=== PATIENT | male | born 1945 | race Caucasian/White ===

== ENCOUNTER 2017-12-03 13:44 | Emergency (ER) | payer MEDICARE, OTHER ==
[2017-12-03] MEDS: NS 1,000 ML IV (15:42)
[2017-12-03 15:48] LABS: BASO # 0.1 10^3/uL (0.0-0.2); BASO % 1.4 % (0.0-1.0); EOS # 0.5 10^3/uL (0.0-0.50); EOS % 8.3 % (0.0-3.0); HEMATOCRIT 43.2 % (42.0-52.0); HEMOGLOBIN 14.7 g/dl (13.5-17.5); IMMATURE GRANULOCYTE % 0.2 % (0-3.0); LYMPH # 1.2 10^3/uL (1.5-4.5); LYMPH % 21.1 % (24.0-44.0); MEAN CORPUSCULAR HEMOGLOBIN 33.6 pg (27.0-33.0); MEAN CORPUSCULAR VOLUME 98.6 fl (80.0-96.0); MONO # 0.7 10^3/uL (0.0-0.8); MONO % 11.9 % (0.0-5.0); NEUTROPHILS # 3.4 10^3/uL (1.8-7.7); NEUTROPHILS % 57.1 % (36.0-66.0); PLATELET COUNT, AUTOMATED 173 10^3/uL (150-450); RED BLOOD COUNT 4.38 10^6/uL (4.30-6.10); RED CELL DISTRIBUTION WIDTH 13.2 % (11.5-14.5); WHITE BLOOD COUNT 5.9 10^3/uL (4.0-10.0)
[2017-12-03 16:02] LABS: LACTIC ACID SEPSIS PROTOCOL 0.9 MMOL/L (0.4-2.0)
[2017-12-03 16:09] LABS: KETONE, URINE AUTO RFX NEGATIVE (NEGATIVE); LEUKOCYTE ESTERASE UR AUTO RFX NEGATIVE (NEGATIVE); MUCUS, URINE RFX SMALL (NEGATIVE); NITRITE, URINE AUTO RFX NEGATIVE (NEGATIVE); RBC, URINE AUTO RFX 3 /HPF (0-3); SPECIFIC GRAVITY UR AUTO RFX 1.026 (1.002-1.035); SQUAM EPITHELIAL CELL UR AURFX 0 /HPF (0-6); WBC, URINE AUTO RFX 1 /HPF (0-3)
[2017-12-03 16:13] LABS: INR 0.93; PROTHROMBIN TIME 12.5 SECONDS (12.4-14.5)
[2017-12-03 16:35] LABS: ALBUMIN 3.6 GM/DL (3.2-5.2); ALBUMIN/GLOBULIN RATIO 0.92 (1.00-1.93); ALKALINE PHOSPHATASE 175 U/L (45-117); ALT/SGPT 108 U/L (12-78); AMYLASE 58 U/L (25-115); ANION GAP 3 MEQ/L (8-16); AST/SGOT 76 U/L (7-37); BILIRUBIN,DIRECT 0.2 MG/DL (0.0-0.2); BILIRUBIN,TOTAL 0.6 MG/DL (0.2-1.0); BLOOD UREA NITROGEN 20 MG/DL (7-18); CALCIUM LEVEL 8.6 MG/DL (8.8-10.2); CARBON DIOXIDE LEVEL 26 MEQ/L (21-32); CHLORIDE LEVEL 113 MEQ/L (98-107); CREATININE FOR GFR 1.03 MG/DL (0.70-1.30); GLOMERULAR FILTRATION RATE > 60.0 (>42); GLUCOSE, FASTING 76 MG/DL (70-100); LIPASE 269 U/L (73-393); POTASSIUM SERUM 4.2 MEQ/L (3.5-5.1); SODIUM LEVEL 142 MEQ/L (136-145); TOTAL PROTEIN 7.5 GM/DL (6.4-8.2)
[2017-12-03] MEDS ORDERED: ISOVUE-370 76% 100ML VIAL (Q9967) As Ordered (16:59)
== END 2017-12-03 20:11 | disposition home or self-care (01) ==
LOC: M ED 13:44
DX: S22.31XA Fracture of one rib, right side, initial encounter for closed fracture (principal); W11.XXXA Fall on and from ladder, initial encounter; Y92.098 Other place in other non-institutional residence as the place of occurrence of the external cause; I95.9 Hypotension, unspecified; F43.10 Post-traumatic stress disorder, unspecified; Z79.899 Other long term (current) drug therapy
CPT/HCPCS: Q9967

== ENCOUNTER 2018-07-12 18:01 | Inpatient (IN) | payer MEDICARE, OTHER ==
[2018-07-12 20:56] LABS: HEMATOCRIT 40.3 % (42.0-52.0); HEMOGLOBIN 13.1 g/dl (13.5-17.5); MEAN CORPUSCULAR HEMOGLOBIN 32.3 pg (27.0-33.0); MEAN CORPUSCULAR HGB CONC 32.5 g/dl (32.0-36.5); MEAN CORPUSCULAR VOLUME 99.3 fl (80.0-96.0); PLATELET COUNT, AUTOMATED 269 10^3/uL (150-450); RED BLOOD COUNT 4.06 10^6/uL (4.30-6.10); RED CELL DISTRIBUTION WIDTH 12.6 % (11.5-14.5)
[2018-07-12 21:16] LABS: AMPHETAMINES LEVEL URINE NEGATIVE (NEGATIVE); BARBITURATES URINE NEGATIVE (NEGATIVE); BENZODIAZEPINES URINE POSITIVE (NEGATIVE); CANNABINOIDS URINE NEGATIVE (NEGATIVE); COCAINE METABOLITE URINE NEGATIVE (NEGATIVE); METHADONE URINE NEGATIVE (NEGATIVE); OPIATES URINE NEGATIVE (NEGATIVE); PHENCYCLIDINE URINE NEGATIVE (NEGATIVE)
[2018-07-12 21:45] LABS: ACETAMINOPHEN LEVEL < 2.0 UG/ML (10.0-30.0); ALBUMIN/GLOBULIN RATIO 0.63 (1.00-1.93); ALKALINE PHOSPHATASE 262 U/L (45-117); ALT/SGPT 78 U/L (12-78); ANION GAP 8 MEQ/L (8-16); AST/SGOT 67 U/L (7-37); BILIRUBIN,DIRECT < 0.1 MG/DL (0.0-0.2); BILIRUBIN,TOTAL 0.2 MG/DL (0.2-1.0); BLOOD UREA NITROGEN 9 MG/DL (7-18); CALCIUM LEVEL 8.4 MG/DL (8.8-10.2); CARBON DIOXIDE LEVEL 28 MEQ/L (21-32); CHLORIDE LEVEL 101 MEQ/L (98-107); CREATININE FOR GFR 1.16 MG/DL (0.70-1.30); ETHYL ALCOHOL (ETHANOL) < 0.003 % (0.000-0.010); GLOMERULAR FILTRATION RATE > 60.0 (>42); GLUCOSE, FASTING 269 MG/DL (70-100); POTASSIUM SERUM 4.5 MEQ/L (3.5-5.1); SALICYLATE LEVEL < 1.7 MG/DL (5.0-30.0); SODIUM LEVEL 137 MEQ/L (136-145); TOTAL PROTEIN 7.8 GM/DL (6.4-8.2)
[2018-07-12] MEDS ORDERED: MOM 30ML SUSPENSION UDC PO (23:15)
[2018-07-12] MEDS ORDERED: ACETAMINOPHEN TAB 650MG DOSE (2X325MG) PO (23:15)
[2018-07-13] MEDS: MAALOX 30 ML SUSP *UDC PO ×2 (00:16→18:52)
[2018-07-13] MEDS: TAMSULOSIN 0.4 MG CAP PO ×2 (00:23→20:11)
[2018-07-13] MEDS: PRAVASTATIN 20 MG TAB PO ×2 (00:51→20:11)
[2018-07-13] MEDS: MULTIVITAMINS/MINERALS THERAP 1 TAB PO (09:22)
[2018-07-13] MEDS: LISINOPRIL 5 MG TAB PO (09:22)
[2018-07-13] MEDS: ESCITALOPRAM OXALATE 10 MG TAB (LEXAPRO) PO (09:22)
[2018-07-13] MEDS: traZODone 50 MG TAB PO (21:52)
[2018-07-14] MEDS: SERTRALINE HCL 50 MG TAB PO (09:45)
[2018-07-14] MEDS: MULTIVITAMINS/MINERALS THERAP 1 TAB PO (09:45)
[2018-07-14] MEDS: LISINOPRIL 5 MG TAB PO (09:45)
== END 2018-07-14 13:30 | disposition home or self-care (01) | DRG 882 ==
LOC: M ED 18:01 → M ED INP 23:01 → M PSY 23:35
DX: F43.10 Post-traumatic stress disorder, unspecified (principal); F41.9 Anxiety disorder, unspecified; N40.0 Benign prostatic hyperplasia without lower urinary tract symptoms; I10 Essential (primary) hypertension; E78.5 Hyperlipidemia, unspecified; Z96.651 Presence of right artificial knee joint; Z96.652 Presence of left artificial knee joint

== ENCOUNTER 2023-01-16 19:39 | Observation (INO) | payer MEDICARE, OTHER ==
[~2023-01-16] VITALS: Ht 172.7 cm; Wt 99.8 kg
[~2023-01-16 19:39] MED LIST: FLOM0.4C39 PO; LEXA1TAB2 PO; LISI20TA33 PO; LISI5TAB11 PO; PRAV10TA4 PO; PRAV20TA2 PO; VITMTA PO
[2023-01-16] MEDS ORDERED: LIDOCAINE 1% MDV 20ML VIAL IM ONE (22:50)
[2023-01-16] MEDS ORDERED: ceFAZolin SOD 2 GM in IV 1 EA IV ONE (23:05)
[2023-01-17] VITALS (9 sets, daily range): BP systolic 116–172; BP diastolic 59–80; TEMP 97.9–98.8; O2SAT 93–99
[2023-01-17 00:18] LABS: RSV AMPLIFICATION NEGATIVE (NEGATIVE)
[2023-01-17 00:43] LABS: ALBUMIN 3.8 G/DL (3.2-5.2); ALKALINE PHOSPHATASE 117 U/L (46-116); ALT/SGPT 44 U/L (7.0-40); AST/SGOT 46 U/L (<34); BASO # 0.1 10^3/uL (0.0-0.2); BASO % 0.7 % (0.0-1.0); BILIRUBIN,TOTAL 1.2 MG/DL (0.3-1.2); BLOOD UREA NITROGEN 22 MG/DL (9-23); CALCIUM LEVEL 8.2 MG/DL (8.3-10.6); CARBON DIOXIDE LEVEL 27 MMOL/L (20-31); CHLORIDE LEVEL 109 MMOL/L (98-107); CREATININE FOR GFR 1.07 MG/DL (0.70-1.30); EOS # 0.3 10^3/uL (0.0-0.5); EOS % 3.4 % (0.0-3.0); GLOMERULAR FILTRATION RATE > 60.0 (>42); GLUCOSE, FASTING 101 MG/DL (74-106); HEMATOCRIT 42.9 % (42.0-52.0); HEMOGLOBIN 14.4 g/dl (13.5-17.5); LYMPH # 1.4 10^3/uL (1.5-5.0); LYMPH % 19.3 % (24.0-44.0); MEAN CORPUSCULAR HGB CONC 33.6 g/dl (32.0-36.5); MEAN CORPUSCULAR VOLUME 98.4 fl (80.0-96.0); MONO # 0.9 10^3/uL (0.0-0.8); MONO % 11.7 % (2.0-8.0); NEUTROPHILS # 4.8 10^3/uL (1.5-8.5); NEUTROPHILS % 64.8 % (36.0-66.0); PLATELET COUNT, AUTOMATED 138 10^3/uL (150-450); POTASSIUM SERUM 4.2 MMOL/L (3.5-5.1); RED BLOOD COUNT 4.36 10^6/uL (4.30-6.10); SODIUM LEVEL 142 MMOL/L (136-145); TOTAL PROTEIN 6.5 G/DL (5.7-8.2); WHITE BLOOD COUNT 7.5 10^3/uL (4.0-10.0)
[2023-01-17] MEDS ORDERED: HYDROMORPHONE HCL 0.5 MG/ 0.5 ML SYRINGE IV PRN (01:35)
[2023-01-17] MEDS ORDERED: ACETAMINOPHEN TAB 650MG DOSE (2X325MG) PO PRN (01:35)
[2023-01-17] MEDS ORDERED: EFFE75CA2 PO (02:14)
[2023-01-17] MEDS ORDERED: ZOLO100T PO (02:14)
[2023-01-17] MEDS ORDERED: GABA600T4 PO (02:14)
[2023-01-17] MEDS ORDERED: LISI5TAB11 PO (02:14)
[2023-01-17] MEDS ORDERED: HOME MED LIST COMPLETE! XX SCH (02:15)
[2023-01-17] MEDS: NS 1,000 ML IV SCH (02:41)
[2023-01-17] MEDS: ceFAZolin SOD 2 GM in IV 1 EA IV SCH ×2 (09:37→16:57)
[2023-01-17] MEDS: GABAPENTIN 300 MG CAP PO SCH ×2 (09:37→20:46)
[2023-01-17] MEDS: lisinopriL 5 MG TAB PO SCH (09:40)
[2023-01-17] MEDS: SERTRALINE 100 MG TAB PO SCH (09:40)
[2023-01-17] MEDS ORDERED: LIDOCAINE 2% 100MG/5ML SDV (FOR ANES.) As Ordered ONE (15:47)
[2023-01-17] MEDS ORDERED: propofoL 200 MG/20 ML VIAL As Ordered ONE ×2 (15:47→16:46)
[2023-01-17] MEDS ORDERED: fentaNYL 100 MCG/2 ML INJECTION As Ordered ONE ×2 (15:48→16:46)
[2023-01-17] MEDS ORDERED: MIDAZOLAM INJ 2MG/2ML VIAL As Ordered ONE (15:48)
[2023-01-17] MEDS ORDERED: TRANEXAMIC ACID 100 MG/ML 10ML VIAL As Ordered ONE (16:24)
[2023-01-17] MEDS ORDERED: ceFAZolin 2 GM/D5W 50 ML IV BAG As Ordered ONE (16:24)
[2023-01-17] MEDS ORDERED: ONDANSETRON 4MG 2ML VIAL As Ordered ONE (16:28)
[2023-01-17] MEDS ORDERED: ACETAMINOPHEN 1000MG 100ML IV BAG As Ordered ONE (16:46)
[2023-01-17] MEDS ORDERED: hydrALAZINE 20MG/ML 1ML VIAL As Ordered ONE (16:49)
[2023-01-17] MEDS ORDERED: LR 1,000 ML IV SCH (18:05)
[2023-01-17] MEDS ORDERED: oxyCODONE 5MG TAB PO PRN (18:05)
[2023-01-17] MEDS ORDERED: METOCLOPRAMIDE INJ 10MG/2ML VIAL IV PRN (18:05)
[2023-01-17] MEDS ORDERED: ONDANSETRON 4MG 2ML VIAL IV PRN (18:05)
[2023-01-17] MEDS ORDERED: fentaNYL 100 MCG/2 ML INJECTION IV PRN (18:05)
[2023-01-17] MEDS ORDERED: VENLAFAXINE **XR** 75MG CAPSULE PO SCH (21:00)
[2023-01-17] MEDS ORDERED: TAMSULOSIN 0.4 MG CAP PO SCH (21:00)
[2023-01-18] MEDS: NS 1,000 ML IV SCH (01:47)
[2023-01-18] MEDS: ceFAZolin SOD 2 GM in IV 1 EA IV SCH ×2 (01:48→09:06)
[2023-01-18 03:15] VITALS: BP 161/72; TEMP 97.9; O2SAT 94
[2023-01-18 07:39] LABS: BLOOD UREA NITROGEN 25 MG/DL (9-23); CALCIUM LEVEL 8.8 MG/DL (8.3-10.6); CARBON DIOXIDE LEVEL 24 MMOL/L (20-31); CHLORIDE LEVEL 109 MMOL/L (98-107); CREATININE FOR GFR 1.04 MG/DL (0.70-1.30); GLOMERULAR FILTRATION RATE > 60.0 (>42); GLUCOSE, FASTING 101 MG/DL (74-106); POTASSIUM SERUM 4.4 MMOL/L (3.5-5.1); SODIUM LEVEL 140 MMOL/L (136-145)
[2023-01-18] MEDS ORDERED: PROT1TAB2 PO (08:28)
[2023-01-18] MEDS ORDERED: ASPI81CH33 PO (08:28)
[2023-01-18] MEDS ORDERED: ENOXAPARIN 40MG/0.4ML SYRINGE (J1650 PER 10MG) SC SCH (09:00)
[2023-01-18] MEDS: GABAPENTIN 300 MG CAP PO SCH (09:06)
[2023-01-18] MEDS: SERTRALINE 100 MG TAB PO SCH (09:06)
[2023-01-18 09:09] VITALS: BP 152/78
[2023-01-18] MEDS: lisinopriL 5 MG TAB PO SCH (09:09)
== END 2023-01-18 13:35 | disposition home or self-care (01) ==
LOC: M ED 19:39 → M ED INP 19:40 → M MS5PR 01-17 03:16
PROVIDERS: ADMIT Internal Medicine; ATTEND Internal Medicine
DX: S52.552B Other extraarticular fracture of lower end of left radius, initial encounter for open fracture type I or II (principal); W10.8XXA Fall (on) (from) other stairs and steps, initial encounter; Y92.096 Garden or yard of other non-institutional residence as the place of occurrence of the external cause; Y93.01 Activity, walking, marching and hiking; I10 Essential (primary) hypertension; E78.5 Hyperlipidemia, unspecified; N40.0 Benign prostatic hyperplasia without lower urinary tract symptoms; F43.10 Post-traumatic stress disorder, unspecified; G25.81 Restless legs syndrome; Z96.653 Presence of artificial knee joint, bilateral; F33.0 Major depressive disorder, recurrent, mild; R74.01 Elevation of levels of liver transaminase levels; K76.0 Fatty (change of) liver, not elsewhere classified; Z79.899 Other long term (current) drug therapy
CPT/HCPCS: 25608; 36415; 73100; 73110; 73200; 76000; 80048; 80053; 85025; 87631; 93005; 96374; 96375; 96376; 99284; C1713; G0378; J0131; J0360; J0690; J1100; J2250; J2405; J3010

== ENCOUNTER → 2023-02-04 | Outpatient (CLI) | payer OTHER ==
[~2023-02-04] MED LIST changes: +ASPI81CH33 PO; +EFFE75CA2 PO; +GABA600T4 PO; +PROT1TAB2 PO; +ZOLO100T PO
== END ==
LOC: M SOG 09:47
PROVIDERS: ATTEND Orthopaedic Surgery
DX: M25.532 Pain in left wrist (principal)

== ENCOUNTER → 2023-03-02 | Outpatient (CLI) | payer MEDICARE ==
[~2023-03-02] MED LIST changes: +ASPI-655 PO; +CEPH500C PO; +ERGO500029 PO; +LEVO25TA5 PO; +NEUR300C PO; +OXYC1TAB23 PO; +PANT40TA29 PO; +PRAV40TA2 PO
== END ==
LOC: M SOG 07:53
PROVIDERS: ATTEND Orthopaedic Surgery
DX: S52.501E Unspecified fracture of the lower end of right radius, subsequent encounter for open fracture type I or II with routine healing (principal)

== ENCOUNTER 2024-01-08 12:53 | Emergency (ER) | payer MEDICARE ==
[~2024-01-08] VITALS: Ht 172.7 cm; Wt 92.1 kg
[2024-01-08 13:59] LABS: BASO % 0.5 % (0.0-1.0); EOS # 0.2 10^3/uL (0.0-0.5); EOS % 2.6 % (0.0-3.0); HEMATOCRIT 45.8 % (42.0-52.0); HEMOGLOBIN 15.7 g/dl (13.5-17.5); LYMPH # 1.5 10^3/uL (1.5-5.0); LYMPH % 20.4 % (24.0-44.0); MEAN CORPUSCULAR HGB CONC 34.3 g/dl (32.0-36.5); MEAN CORPUSCULAR VOLUME 96.2 fl (80.0-96.0); MONO # 0.6 10^3/uL (0.0-0.8); MONO % 8.1 % (2.0-8.0); NEUTROPHILS # 5.1 10^3/uL (1.5-8.5); NEUTROPHILS % 68.3 % (36.0-66.0); PLATELET COUNT, AUTOMATED 190 10^3/uL (150-450); RED BLOOD COUNT 4.76 10^6/uL (4.30-6.10); WHITE BLOOD COUNT 7.5 10^3/uL (4.0-10.0)
[2024-01-08 14:11] LABS: PARTIAL THROMBOPLASTIN TIME 26.6 SECONDS (24.8-34.2)
[2024-01-08 14:30] LABS: CK-MB VALUE MASS < 1.0 NG/ML (<3.6)
[2024-01-08 14:32] LABS: BLOOD UREA NITROGEN 16 MG/DL (9-23); CARBON DIOXIDE LEVEL 30 MMOL/L (20-31); CHLORIDE LEVEL 107 MMOL/L (98-107); CREATININE FOR GFR 1.14 MG/DL (0.70-1.30); GLOMERULAR FILTRATION RATE > 60.0 (>42); GLUCOSE, FASTING 104 MG/DL (74-106); POTASSIUM SERUM 3.7 MMOL/L (3.5-5.1); SODIUM LEVEL 143 MMOL/L (136-145)
[2024-01-08 14:33] LABS: CPK CREATINE PHOSPHOKINASE 58 U/L (46-171); MB/CK RELATIVE INDEX 1.72 (< OR =4)
[2024-01-08] MEDS ORDERED: ISOVUE-370 76% 100ML VIAL As Ordered ONE (14:38)
[2024-01-08] MEDS: NS 500 ML IV ONE (14:41)
[2024-01-08 15:06] LABS: INR 1.03; PROTHROMBIN TIME 13.2 SECONDS (12.5-14.5)
[2024-01-08 16:53] LABS: ALBUMIN 3.8 G/DL (3.2-5.2); ALKALINE PHOSPHATASE 168 U/L (46-116); ALT/SGPT 41 U/L (7.0-40); AST/SGOT 39 U/L (<34); BILIRUBIN,DIRECT 0.3 MG/DL (<0.4); TOTAL PROTEIN 6.9 G/DL (5.7-8.2)
[2024-01-08 17:35] VITALS: BP 154/82
[2024-01-08] MEDS: lisinopriL 5 MG TAB PO ONE (17:35)
[2024-01-08] MEDS: MORPHINE 2 MG/ML 1ML VIAL IV ONE (18:48)
[2024-01-08 20:43] VITALS: BP 192/93; TEMP 98.3; O2SAT 94
[2024-01-08] MEDS: hydrALAZINE 20MG/ML 1ML VIAL IV ONE (21:01)
== END 2024-01-08 21:15 | disposition short-term general hospital (02) ==
LOC: M ED 12:53
DX: S22.059A Unspecified fracture of T5-T6 vertebra, initial encounter for closed fracture (principal); K86.9 Disease of pancreas, unspecified; X58.XXXA Exposure to other specified factors, initial encounter; Y92.9 Unspecified place or not applicable; Y93.9 Activity, unspecified; Y99.9 Unspecified external cause status; I10 Essential (primary) hypertension; Z79.899 Other long term (current) drug therapy

== ENCOUNTER 2024-01-11 15:08 | Inpatient (IN) | payer MEDICARE ==
[~2024-01-11] VITALS: Ht 172.7 cm; Wt 93.3 kg
[2024-01-11 17:09] LABS: HEMATOCRIT 42.4 % (42.0-52.0); HEMOGLOBIN 14.2 g/dl (13.5-17.5); MEAN CORPUSCULAR HEMOGLOBIN 33.3 pg (27.0-33.0); MEAN CORPUSCULAR HGB CONC 33.5 g/dl (32.0-36.5); MEAN CORPUSCULAR VOLUME 99.3 fl (80.0-96.0); PLATELET COUNT, AUTOMATED 187 10^3/uL (150-450); RED BLOOD COUNT 4.27 10^6/uL (4.30-6.10); WHITE BLOOD COUNT 10.5 10^3/uL (4.0-10.0)
[2024-01-11 17:36] LABS: BLOOD UREA NITROGEN 20 MG/DL (9-23); CALCIUM LEVEL 8.9 MG/DL (8.3-10.6); CARBON DIOXIDE LEVEL 30 MMOL/L (20-31); CHLORIDE LEVEL 107 MMOL/L (98-107); CREATININE FOR GFR 1.03 MG/DL (0.70-1.30); GLOMERULAR FILTRATION RATE > 60.0 (>42); GLUCOSE, FASTING 105 MG/DL (74-106); POTASSIUM SERUM 3.8 MMOL/L (3.5-5.1); SODIUM LEVEL 141 MMOL/L (136-145)
[2024-01-11] MEDS: lisinopriL 5 MG TAB PO ONE (18:05)
[2024-01-11] MEDS: hydrALAZINE 20MG/ML 1ML VIAL IV ONE (18:38)
[2024-01-11] MEDS ORDERED: THERTAB19 PO (19:59)
[2024-01-11] MEDS ORDERED: WELLTAB38 PO (19:59)
[2024-01-11] MEDS ORDERED: LISI10TA22 PO (19:59)
[2024-01-11] MEDS ORDERED: HOME MED LIST COMPLETE! XX SCH (20:00)
[2024-01-11] MEDS ORDERED: ONDANSETRON 4MG 2ML VIAL IV PRN (21:30)
[2024-01-11] MEDS: GABAPENTIN 300 MG CAP PO SCH (21:54)
[2024-01-11] MEDS: DOCUSATE SODIUM 100MG CAPSULE PO SCH (21:54)
[2024-01-11] MEDS: PRAVASTATIN 20 MG TAB PO SCH (21:54)
[2024-01-11 23:30] VITALS: BP 167/78; TEMP 97.8; O2SAT 97
[2024-01-12] VITALS: O2SAT 95
[2024-01-12] MEDS: NORCO, ANEXSIA 5/325MG TABLET (HYDROcodone/ACETAMINOPHEN) PO PRN (01:40)
[2024-01-12 03:38] VITALS: BP 150/70; TEMP 97.7; O2SAT 94
[2024-01-12] MEDS: LEVOTHYROXINE 25MCG TABLET (0.025MG) PO SCH (05:21)
[2024-01-12 06:17] LABS: HEMATOCRIT 36.6 % (42.0-52.0); HEMOGLOBIN 12.5 g/dl (13.5-17.5); MEAN CORPUSCULAR HEMOGLOBIN 33.3 pg (27.0-33.0); MEAN CORPUSCULAR HGB CONC 34.2 g/dl (32.0-36.5); MEAN CORPUSCULAR VOLUME 97.6 fl (80.0-96.0); PLATELET COUNT, AUTOMATED 148 10^3/uL (150-450); RED BLOOD COUNT 3.75 10^6/uL (4.30-6.10); WHITE BLOOD COUNT 8.4 10^3/uL (4.0-10.0)
[2024-01-12 06:41] LABS: ALBUMIN 3.3 G/DL (3.2-5.2); ALKALINE PHOSPHATASE 137 U/L (46-116); ALT/SGPT 37 U/L (7.0-40); AST/SGOT 47 U/L (<34); BILIRUBIN,TOTAL 1.4 MG/DL (0.3-1.2); BLOOD UREA NITROGEN 18 MG/DL (9-23); CALCIUM LEVEL 8.2 MG/DL (8.3-10.6); CARBON DIOXIDE LEVEL 25 MMOL/L (20-31); CHLORIDE LEVEL 106 MMOL/L (98-107); GLOMERULAR FILTRATION RATE > 60.0 (>42); GLUCOSE, FASTING 84 MG/DL (74-106); POTASSIUM SERUM 3.8 MMOL/L (3.5-5.1); SODIUM LEVEL 139 MMOL/L (136-145)
[2024-01-12 07:37] VITALS: BP 139/65; TEMP 96.7; O2SAT 93
[2024-01-12] MEDS: SERTRALINE HCL 50 MG TAB PO SCH (09:56)
[2024-01-12] MEDS: ENOXAPARIN 40MG/0.4ML SYRINGE (J1650 PER 10MG) SC SCH (09:56)
[2024-01-12] MEDS: buPROPion **XL** TABLET 150MG (WELLBUTRIN XL) PO SCH (09:57)
[2024-01-12 11:33] LABS: VITAMIN B12 LEVEL 606 PG/ML (211-911)
[2024-01-12 11:55] LABS: THYROID STIMULATING HORMONE 4.008 uIU/ML (0.55-4.78)
[2024-01-12 12:07] VITALS: BP 158/77; O2SAT 95
[2024-01-12 13:35] VITALS: BP_SYST 156; BP_SYST 168; BP_SYST 186; BP_SYST 189; BP_DIAS 70; BP_DIAS 72; BP_DIAS 77; BP_DIAS 86
[2024-01-12] MEDS: lisinopriL 5 MG TAB PO ONE (17:03)
[2024-01-12 19:00] VITALS: BP 161/72; TEMP 98.1; O2SAT 95
[2024-01-12] MEDS ORDERED: TAMSULOSIN 0.4 MG CAP PO SCH (21:00)
[2024-01-12] MEDS: TAMSULOSIN 0.4 MG CAP PO SCH (21:07)
[2024-01-13] VITALS (8 sets, daily range): BP systolic 110–160; BP diastolic 54–79; TEMP 97–98.1; O2SAT 94–96
[2024-01-13 05:27] LABS: BASO % 0.5 % (0.0-1.0); EOS # 0.4 10^3/uL (0.0-0.5); EOS % 4.5 % (0.0-3.0); HEMATOCRIT 34.6 % (42.0-52.0); HEMOGLOBIN 11.6 g/dl (13.5-17.5); LYMPH # 1.4 10^3/uL (1.5-5.0); LYMPH % 17.9 % (24.0-44.0); MEAN CORPUSCULAR HEMOGLOBIN 32.8 pg (27.0-33.0); MEAN CORPUSCULAR HGB CONC 33.5 g/dl (32.0-36.5); MEAN CORPUSCULAR VOLUME 97.7 fl (80.0-96.0); MONO # 0.7 10^3/uL (0.0-0.8); MONO % 8.4 % (2.0-8.0); NEUTROPHILS # 5.4 10^3/uL (1.5-8.5); NEUTROPHILS % 68.2 % (36.0-66.0); PLATELET COUNT, AUTOMATED 139 10^3/uL (150-450); RED BLOOD COUNT 3.54 10^6/uL (4.30-6.10); WHITE BLOOD COUNT 7.9 10^3/uL (4.0-10.0)
[2024-01-13 05:54] LABS: BLOOD UREA NITROGEN 20 MG/DL (9-23); CALCIUM LEVEL 8.6 MG/DL (8.3-10.6); CARBON DIOXIDE LEVEL 27 MMOL/L (20-31); CHLORIDE LEVEL 110 MMOL/L (98-107); CREATININE FOR GFR 1.02 MG/DL (0.70-1.30); GLOMERULAR FILTRATION RATE > 60.0 (>42); GLUCOSE, FASTING 97 MG/DL (74-106); SODIUM LEVEL 141 MMOL/L (136-145)
[2024-01-13] MEDS: ACETAMINOPHEN TAB 650MG DOSE (2X325MG) PO PRN (20:22)
[2024-01-14 04:16] VITALS: BP 146/70; TEMP 97.7; O2SAT 95
[2024-01-14 13:00] VITALS: BP 144/65; TEMP 97.7; O2SAT 95
[2024-01-14 20:57] VITALS: BP 149/65; TEMP 97.5; O2SAT 96
[2024-01-15 04:47] VITALS: BP 181/70; TEMP 97.7; O2SAT 97
[2024-01-15 12:10] VITALS: BP 147/64; TEMP 97.7; O2SAT 96
[2024-01-15 16:19] VITALS: BP 151/58
[2024-01-15 19:38] VITALS: BP 159/60; TEMP 97; O2SAT 94
[2024-01-16 05:32] VITALS: BP 172/72; TEMP 98.1; O2SAT 97
[2024-01-16 12:00] VITALS: BP 167/70; TEMP 97.5; O2SAT 98
[2024-01-16 15:29] VITALS: BP 171/71
[2024-01-16] MEDS: **hydrALAZINE** 10 MG TAB PO PRN (15:44)
[2024-01-16 19:00] VITALS: BP 173/71
[2024-01-16 20:10] VITALS: BP 158/64; TEMP 97.9; O2SAT 99
[2024-01-17 04:00] VITALS: BP 175/77; TEMP 97.5; O2SAT 97
[2024-01-17] MEDS: amLODIPine 5 MG TAB PO SCH (08:58)
[2024-01-17] MEDS: LIDOCAINE 5% (LIDODERM) PATCH TD SCH (09:06)
[2024-01-17 12:00] VITALS: BP 176/71; TEMP 97.9; O2SAT 97
[2024-01-17] MEDS: amLODIPine 5 MG TAB PO ONE (12:47)
[2024-01-17 19:58] VITALS: BP 153/61; TEMP 98.1; O2SAT 95
[2024-01-18 00:12] VITALS: BP 154/73; TEMP 97.7; O2SAT 96
[2024-01-18 04:00] VITALS: BP 166/77; TEMP 97.5; O2SAT 95
[2024-01-18] MEDS: **hydrALAZINE HCL** 25 MG TAB PO PRN (04:19)
[2024-01-18 05:47] LABS: BASO # 0.1 10^3/uL (0.0-0.2); BASO % 0.7 % (0.0-1.0); EOS # 0.3 10^3/uL (0.0-0.5); EOS % 4.2 % (0.0-3.0); HEMOGLOBIN 12.4 g/dl (13.5-17.5); LYMPH # 1.5 10^3/uL (1.5-5.0); LYMPH % 17.9 % (24.0-44.0); MEAN CORPUSCULAR HEMOGLOBIN 33.6 pg (27.0-33.0); MEAN CORPUSCULAR HGB CONC 33.5 g/dl (32.0-36.5); MEAN CORPUSCULAR VOLUME 100.3 fl (80.0-96.0); MONO # 0.8 10^3/uL (0.0-0.8); MONO % 9.3 % (2.0-8.0); NEUTROPHILS # 5.5 10^3/uL (1.5-8.5); NEUTROPHILS % 67.5 % (36.0-66.0); PLATELET COUNT, AUTOMATED 186 10^3/uL (150-450); RED BLOOD COUNT 3.69 10^6/uL (4.30-6.10); WHITE BLOOD COUNT 8.1 10^3/uL (4.0-10.0)
[2024-01-18 12:00] VITALS: BP 152/76; TEMP 97.7; O2SAT 95
[2024-01-18 19:24] VITALS: BP 162/70; TEMP 98.1; O2SAT 91
[2024-01-19 04:00] VITALS: BP 171/78; TEMP 98.1; O2SAT 96
[2024-01-19 08:10] VITALS: BP 163/78
[2024-01-19] MEDS: ACETAMINOPHEN 500 MG TAB PO SCH (08:12)
[2024-01-19] MEDS: **hydrALAZINE HCL** 25 MG TAB PO SCH (08:13)
[2024-01-19] MEDS: methocarbamoL 750 MG TAB PO SCH (08:13)
[2024-01-19 12:27] VITALS: BP 150/73; TEMP 97.5; O2SAT 97
[2024-01-19 21:45] VITALS: BP 161/71; TEMP 98.1; O2SAT 95
[2024-01-19 23:41] VITALS: BP 152/68; TEMP 98.1; O2SAT 96
[2024-01-20] VITALS (8 sets, daily range): BP systolic 106–140; BP diastolic 58–90; TEMP 97.3–97.7; O2SAT 92–99
[2024-01-21 04:43] VITALS: BP 138/65; TEMP 97.5; O2SAT 98
[2024-01-21 08:00] VITALS: BP 144/65; TEMP 97.7; O2SAT 93
[2024-01-21] MEDS ORDERED: LISI20TA33 PO (10:24)
[2024-01-21 12:00] VITALS: BP 113/87; TEMP 97.7; O2SAT 97
[2024-01-21 16:00] VITALS: BP 122/61; TEMP 98.1; O2SAT 94
[2024-01-21 20:01] VITALS: BP 151/59; TEMP 97.9; O2SAT 95
[2024-01-22 05:31] VITALS: BP 140/62; TEMP 97.5; O2SAT 96
[2024-01-22 08:10] VITALS: BP 144/65; TEMP 97.5; O2SAT 95
[2024-01-22 08:31] VITALS: BP 137/63
[2024-01-22 13:05] VITALS: BP 133/66; TEMP 97.7; O2SAT 96
== END 2024-01-22 15:35 | DRG 536 ==
LOC: EDBD 15:08 → M ED 15:08 → M ED INP 19:59 → M PCU 23:26 → M MS5PR 01-13 13:38
PROVIDERS: ADMIT Preventive Medicine Undersea and Hyperbaric Medicine; ATTEND Internal Medicine
PROC: B246ZZZ Ultrasonography of Right and Left Heart (ICD-10-PCS; principal; 2024-01-13)
DX: S32.511A Fracture of superior rim of right pubis, initial encounter for closed fracture (principal); S22.059A Unspecified fracture of T5-T6 vertebra, initial encounter for closed fracture; S32.591A Other specified fracture of right pubis, initial encounter for closed fracture; I10 Essential (primary) hypertension; G62.9 Polyneuropathy, unspecified; M19.90 Unspecified osteoarthritis, unspecified site; Z96.653 Presence of artificial knee joint, bilateral; M47.816 Spondylosis without myelopathy or radiculopathy, lumbar region; M47.812 Spondylosis without myelopathy or radiculopathy, cervical region; I95.1 Orthostatic hypotension; I16.0 Hypertensive urgency; E03.9 Hypothyroidism, unspecified; Z79.890 Hormone replacement therapy; Z79.899 Other long term (current) drug therapy; N40.1 Benign prostatic hyperplasia with lower urinary tract symptoms; F32.A Depression, unspecified; E78.5 Hyperlipidemia, unspecified; R26.89 Other abnormalities of gait and mobility; R29.6 Repeated falls; W10.8XXA Fall (on) (from) other stairs and steps, initial encounter; Y92.018 Other place in single-family (private) house as the place of occurrence of the external cause; Y93.89 Activity, other specified; Y99.8 Other external cause status

== ENCOUNTER → 2024-02-04 | Outpatient (CLI) | payer MEDICARE ==
[~2024-02-04] MED LIST changes: +LISI10TA22 PO; +THERTAB19 PO; +WELLTAB38 PO
== END ==
LOC: M SOG 07:54
PROVIDERS: ATTEND Physician Assistant
DX: S32.591A Other specified fracture of right pubis, initial encounter for closed fracture (principal); Y93.9 Activity, unspecified; Y92.9 Unspecified place or not applicable

== ENCOUNTER → 2024-03-03 | Outpatient (CLI) | payer MEDICARE | LOC: M PLAIMG 13:07 | PROVIDERS: ATTEND Physician Assistant | DX: M85.851 Other specified disorders of bone density and structure, right thigh (principal); M25.551 Pain in right hip ==

== ENCOUNTER 2024-03-24 11:36 | Emergency (ER) | payer MEDICARE ==
[~2024-03-24] VITALS: Ht 172.7 cm; Wt 89.6 kg
[~2024-03-24 11:36] MED LIST changes: +GABA-1490 PO; -GABA600T4 PO
[2024-03-24 15:34] VITALS: BP 141/73; TEMP 97.2; O2SAT 97
== END 2024-03-24 15:39 | disposition home or self-care (01) ==
LOC: M ED 11:36
DX: R29.6 Repeated falls (principal); M48.061 Spinal stenosis, lumbar region without neurogenic claudication; S32.11 Zone I fracture of sacrum; X58.XXXS Exposure to other specified factors, sequela; Y92.9 Unspecified place or not applicable; Y93.9 Activity, unspecified; Y99.9 Unspecified external cause status; I10 Essential (primary) hypertension; E78.5 Hyperlipidemia, unspecified; F41.9 Anxiety disorder, unspecified; F32.A Depression, unspecified; F43.10 Post-traumatic stress disorder, unspecified; E03.9 Hypothyroidism, unspecified; G60.9 Hereditary and idiopathic neuropathy, unspecified; Z79.899 Other long term (current) drug therapy

== ENCOUNTER → 2024-03-31 | Outpatient (CLI) | payer MEDICARE | LOC: M SOG 08:00 | PROVIDERS: ATTEND Physician Assistant | DX: M25.551 Pain in right hip (principal) ==

== ENCOUNTER 2024-05-31 16:18 | Emergency (ER) | payer MEDICARE ==
[~2024-05-31] VITALS: Ht 172.7 cm; Wt 88.2 kg
[2024-05-31 18:20] LABS: BASO % 0.4 % (0.0-1.0); EOS # 0.5 10^3/uL (0.0-0.5); EOS % 5.7 % (0.0-3.0); HEMOGLOBIN 15.8 g/dl (13.5-17.5); LYMPH # 1.4 10^3/uL (1.5-5.0); LYMPH % 16.6 % (24.0-44.0); MEAN CORPUSCULAR HEMOGLOBIN 32.4 pg (27.0-33.0); MEAN CORPUSCULAR HGB CONC 33.6 g/dl (32.0-36.5); MEAN CORPUSCULAR VOLUME 96.3 fl (80.0-96.0); MONO # 0.7 10^3/uL (0.0-0.8); NEUTROPHILS # 5.7 10^3/uL (1.5-8.5); NEUTROPHILS % 69.1 % (36.0-66.0); PLATELET COUNT, AUTOMATED 172 10^3/uL (150-450); RED BLOOD COUNT 4.88 10^6/uL (4.30-6.10); WHITE BLOOD COUNT 8.2 10^3/uL (4.0-10.0)
[2024-05-31] MEDS ORDERED: ISOVUE-370 76% 100ML VIAL As Ordered ONE (18:32)
[2024-05-31] MEDS: NS 500 ML IV ONE (18:36)
[2024-05-31 18:41] LABS: CK-MB VALUE MASS < 1.0 NG/ML (<3.6)
[2024-05-31 18:43] LABS: BLOOD UREA NITROGEN 25 MG/DL (9-23); CALCIUM LEVEL 9.4 MG/DL (8.3-10.6); CARBON DIOXIDE LEVEL 29 MMOL/L (20-31); CHLORIDE LEVEL 110 MMOL/L (98-107); CREATININE FOR GFR 1.21 MG/DL (0.70-1.30); GLOMERULAR FILTRATION RATE > 60.0 (>42); GLUCOSE, FASTING 110 MG/DL (74-106); POTASSIUM SERUM 4.5 MMOL/L (3.5-5.1); SODIUM LEVEL 143 MMOL/L (136-145)
[2024-05-31 18:45] LABS: THYROID STIMULATING HORMONE 2.658 uIU/ML (0.55-4.78)
[2024-05-31 18:47] LABS: CPK CREATINE PHOSPHOKINASE 42 U/L (46-171); MB/CK RELATIVE INDEX 2.38 (< OR =4)
[2024-05-31 19:44] LABS: CK-MB VALUE MASS < 1.0 NG/ML (<3.6)
[2024-05-31 19:45] LABS: CPK CREATINE PHOSPHOKINASE 30 U/L (46-171); MB/CK RELATIVE INDEX 3.33 (< OR =4)
[2024-05-31 20:23] VITALS: BP 153/73; TEMP 97.6; O2SAT 97
== END 2024-05-31 20:27 | disposition home or self-care (01) ==
LOC: M ED 16:18
DX: K86.9 Disease of pancreas, unspecified (principal); R10.9 Unspecified abdominal pain; W19.XXXA Unspecified fall, initial encounter; Y92.9 Unspecified place or not applicable; Y93.89 Activity, other specified; Y99.9 Unspecified external cause status; I10 Essential (primary) hypertension; G62.9 Polyneuropathy, unspecified; M16.12 Unilateral primary osteoarthritis, left hip; Z87.81 Personal history of (healed) traumatic fracture; Z79.899 Other long term (current) drug therapy
CPT/HCPCS: 71101; 73502; 74177; 80047; 80048; 82550; 82553; 84439; 84443; 84484; 85025; 93005; 93041; 94760; 96360; 99285; Q9967